=== PATIENT | female | born 1990 | race Caucasian/White ===

== ENCOUNTER → 2017-06-21 | Outpatient (CLI) | payer OTHER ==
[~2017-06-21] MED LIST: CYCL5TAB PO; ERGO500037 PO; HYDR-3126 PO; MULT-506 PO; VITAMINB IM
--- NOTE | 2017-06-21 11:35 | DIAGNOSTIC IMAGING REPORT ---
THORACIC SPINE 3 VIEWS ROUTINE CLINICAL HISTORY: THORACIC BACK PAIN COMPARISON STUDY: No previous studies for comparison. FINDINGS: Alignment of the thoracic spine is anatomic. Vertebral body heights are maintained. There is no fracture. Disc spaces are preserved. There is minimal multilevel endplate osteophytosis. IMPRESSION: 1. No thoracic spine fracture or subluxation. 2. Preserved disc spaces within the thoracic spine with minimal multilevel endplate osteophytosis. Electronically signed by: Tl Cobb M.D. 06/21/2017 11:34 AM Dictated Date/Time: 06/21/2017 11:33 AM
== END | disposition home or self-care (01) ==
LOC: C.RADBC 11:16
PROVIDERS: ATTEND Physician Assistant
DX: M54.6 Pain in thoracic spine (principal)

== ENCOUNTER → 2017-10-06 | Outpatient (CLI) | payer OTHER ==
[~2017-10-06] MED LIST changes: +MTR600X PO; +ONDA4TAB46 PO
[2017-10-06 13:22] LABS: BASO % 0.3 %; BASO ABS # 0.02 K/uL (0-0.2); EOS % 1.2 %; EOS ABS # 0.09 K/uL (0-0.5); HEMATOCRIT 41.8 % (37-47); IG# 0.02 K/uL (0.00-0.02); LYMPH % 20.7 %; MEAN CELL VOLUME 97.2 fL (80-100); MEAN CORPUSCULAR HEMOGLOBIN 32.6 pg (25-34); MEAN CORPUSCULAR HGB CONC 33.5 g/dl (32-36); MEAN PLATELET VOLUME 11.3 fL (7.4-10.4); MONO % 7.2 %; MONO ABS # 0.56 K/uL (0.11-0.59); NEUT % 70.3 %; NEUT ABS # 5.45 K/uL (1.4-6.5); PLATELET COUNT 262 K/uL (130-400); RED CELL DISTRIBUTION WIDTH CV 12.5 % (11.5-14.5); RED CELL DISTRIBUTION WIDTH SD 43.6 fL (36.4-46.3); WHITE BLOOD COUNT 7.74 K/uL (4.8-10.8)
[2017-10-06 14:00] LABS: BLOOD UREA NITROGEN 10 mg/dl (7-18); CALCIUM 8.8 mg/dl (8.5-10.1); CARBON DIOXIDE 30 mmol/L (21-32); CREATININE 0.88 mg/dl (0.60-1.20); GLUCOSE 85 mg/dl (70-99); POTASSIUM 3.8 mmol/L (3.5-5.1); SODIUM 139 mmol/L (136-145)
== END | disposition home or self-care (01) ==
LOC: C.LABBC 11:12
PROVIDERS: ATTEND Orthopaedic Surgery
DX: Z01.812 Encounter for preprocedural laboratory examination (principal); G54.0 Brachial plexus disorders